=== PATIENT | female | born 1950 | race Caucasian/White ===

== ENCOUNTER 2018-03-04 10:28 | Outpatient (CLI) | payer MEDICARE ==
--- NOTE | 2018-03-04 12:25 | BD ---
BONE DENSITOMETRY USING DEXA: Date: 03/04/18 HISTORY: Postmenopausal screening for osteoporosis. FINDINGS: Lumbar Spine: BMD (g/cm2) L1 0.729 T-Score: -2.4 Z-Score: -0.8 L2 0.792 T-Score: -2.1 Z-Score: -0.4 L3 0.769 T-Score: -2.9 Z-Score: -1.0 L4 0.829 T-Score: -2.1 Z-Score: -0.2 L1-L4 0.783 T-Score: -2.4 Z-Score: -0.6 Femoral Neck: 0.643 T-Score: -1.9 Z-Score: -0.3 Total Femur: 0.865 T-Score: -0.6 Z-Score: 0.6 IMPRESSION: Osteopenia. POS: [facility]
== END 2018-03-04 10:29 | disposition home or self-care (01) ==
LOC: BICMAMMO 10:28
PROVIDERS: ATTEND Internal Medicine Hematology & Oncology
DX: M81.0 Age-related osteoporosis without current pathological fracture (principal); C50.919 Malignant neoplasm of unspecified site of unspecified female breast; M85.89 Other specified disorders of bone density and structure, multiple sites
CPT/HCPCS: 77080

== ENCOUNTER 2018-03-25 09:13 | Outpatient (CLI) | payer MEDICARE | END 2018-03-25 09:14 | disposition home or self-care (01) | LOC: BICMAMMO 09:13 | PROVIDERS: ATTEND Obstetrics & Gynecology | DX: R92.8 Other abnormal and inconclusive findings on diagnostic imaging of breast (principal); Z80.3 Family history of malignant neoplasm of breast; Z85.3 Personal history of malignant neoplasm of breast | CPT/HCPCS: 77065; G0279 ==